=== PATIENT | female | born 1975 | race African-American/Black ===

== ENCOUNTER 2018-12-19 14:59 | Inpatient (IN) ==
[2018-12-19] MEDS ORDERED: CLINDAMYCIN INJ 900 MG in PREMIX 1 EACH IV STA (16:50)
[2018-12-19 17:37] LABS: Basophils # 0.1 10*3/uL (0.0-0.2); Basophils % 0.6 % (0.0-0.8); Eosinophils # 0.2 10*3/uL (0.0-0.87); Hematocrit 40.6 VOL% (35.7-47.0); Hemoglobin 12.4 GM/DL (12.0-16.0); Immature Granulocytes % 0.3 %; Immature Granulocytes Absolute 0.05 #; Lymphocytes # 3.6 10*3/uL (1.4-4.0); Mean Corpuscular HGB Conc 30.5 GM/DL (32-36); Mean Corpuscular Volume 83.9 FL (87-102); Mean Platelet Volume 9.4 FL (9.6-12.0); Monocytes % 6.1 % (1.7-12.7); Platelet Count 314 T/CUMM (130-400); Red Blood Count 4.84 MC/CUMM (3.8-5.5); Red Cell Distribution Width 15.9 % (9.3-17.3); White Blood Count 14.9 T/CUMM (4-12)
[2018-12-19 17:59] LABS: Albumin 3.3 G/DL (3.4-5.0); Bilirubin,Total 0.4 MG/DL (0.2-1.0); Calcium 8.7 MG/DL (8.5-10.1); Osmolality,Calculated 275.5 MOS/KG (273-304); Total Protein 7.7 G/DL (6.4-8.3)
[2018-12-19] MEDS ORDERED: CLINDAMYCIN INJ 50 ML IV ONE (18:50)
[2018-12-19] MEDS ORDERED: DOCUSATE SODIUM 100 MG CAPSULE PO PRN (21:58)
[2018-12-19] MEDS ORDERED: ACETAMINOPHEN 325 MG TABLET PO PRN (21:58)
[2018-12-19] MEDS ORDERED: LACTULOSE 20 GM/30 ML UDCUP PO PRN (21:58)
[2018-12-19] MEDS ORDERED: ONDANSETRON 4 MG/2 ML VIAL IV PRN (21:58)
[2018-12-19] MEDS ORDERED: MORPHINE 4 MG/1 ML VIAL IV PRN (21:58)
[2018-12-19] MEDS ORDERED: ECALLANTIDE SUBCUT PRN (21:58)
[2018-12-19] MEDS ORDERED: traZODone 50 MG TABLET PO PRN (21:58)
[2018-12-19] MEDS ORDERED: RANITIDINE 150 MG TABLET PO SCH (21:58)
[2018-12-19] MEDS ORDERED: Epinephrine [Epipen 2-Pak] 0.3 MG IJ SCH (21:58)
[2018-12-19] MEDS ORDERED: DESONIDE 0.05% CREAM 15 GM TUBE TOP PRN (21:58)
[2018-12-19] MEDS: FAMOTIDINE 20 MG TABLET PO SCH (22:57)
[2018-12-19] MEDS: cloNIDine 0.1 MG TABLET PO SCH (22:57)
[2018-12-19] MEDS: SODIUM CHLORIDE 0.9% 1,000 ML IV SCH (22:57)
[2018-12-19] MEDS: VANCOMYCIN INJ 2,000 MG in SODIUM CHLORIDE 0.9% 500 ML IV SCH (22:57)
[2018-12-19] MEDS: ENOXAPARIN 40 MG/0.4 ML SYRINGE SUBCUT SCH (23:00)
[2018-12-20 04:32] LABS: Basophils # 0.1 10*3/uL (0.0-0.2); Basophils % 0.4 % (0.0-0.8); Eosinophils % 0.2 % (0.00-10.9); Hematocrit 36.2 VOL% (35.7-47.0); Hemoglobin 11.2 GM/DL (12.0-16.0); Immature Granulocytes % 0.3 %; Immature Granulocytes Absolute 0.05 #; Lymphocytes # 2.9 10*3/uL (1.4-4.0); Lymphocytes % 16.7 % (21.3-54.2); Mean Corpuscular HGB Conc 30.9 GM/DL (32-36); Mean Platelet Volume 10.5 FL (9.6-12.0); Neutrophils % 76.4 % (38.7-73.9); Platelet Count 261 T/CUMM (130-400); Red Blood Count 4.31 MC/CUMM (3.8-5.5); Red Cell Distribution Width 15.9 % (9.3-17.3); White Blood Count 17.1 T/CUMM (4-12)
[2018-12-20 05:00] LABS: Albumin 2.9 G/DL (3.4-5.0); Bilirubin,Total 0.6 MG/DL (0.2-1.0); Calcium 8.6 MG/DL (8.5-10.1); Osmolality,Calculated 277.4 MOS/KG (273-304); Risk Ratio 2.69; Total Protein 6.9 G/DL (6.4-8.3); VLDL CHOLESTEROL 18.4 MG/DL
[2018-12-20 05:07] LABS: Lymphocytes 14 % (20-55); Segmented Neutrophils 80 % (50-85); Total Cells Counted 100
[2018-12-20 05:09] LABS: Anisocytosis 1+; Ovalocytes Few; Platelet Estimate Adequate
[2018-12-20] MEDS: VANCOMYCIN INJ 2,000 MG in SODIUM CHLORIDE 0.9% 500 ML IV SCH ×3 (05:34→17:04)
[2018-12-20] MEDS: LEVOTHYROXINE 50 MCG TABLET PO SCH (05:34)
[2018-12-20] MEDS ORDERED: FOLIC ACID PO SCH (09:00)
[2018-12-20] MEDS ORDERED: BIOTIN PO SCH (09:00)
[2018-12-20] MEDS ORDERED: [UNRECOGNIZED DRUG - OTHER] PO SCH (09:00)
[2018-12-20] MEDS: SODIUM CHLORIDE 0.9% 1,000 ML IV SCH ×3 (11:43→17:05)
[2018-12-20] MEDS: cloNIDine 0.1 MG TABLET PO SCH ×2 (16:32→20:56)
[2018-12-20] MEDS: BENZTROPINE 0.5 MG TABLET PO SCH (16:32)
[2018-12-20] MEDS: ATORVASTATIN 10 MG TABLET PO SCH (16:33)
[2018-12-20] MEDS: ARIPiprazole 10 MG TABLET PO SCH (16:33)
[2018-12-20] MEDS: LUBIPROSTONE 24 MCG CAPSULE PO SCH (16:33)
[2018-12-20] MEDS: FAMOTIDINE 20 MG TABLET PO SCH ×2 (16:33→20:55)
[2018-12-20] MEDS: ENOXAPARIN 40 MG/0.4 ML SYRINGE SUBCUT SCH (20:59)
[2018-12-21 05:11] LABS: Basophils # 0.1 10*3/uL (0.0-0.2); Basophils % 0.5 % (0.0-0.8); Eosinophils # 0.2 10*3/uL (0.0-0.87); Eosinophils % 1.1 % (0.00-10.9); Hematocrit 34.3 VOL% (35.7-47.0); Hemoglobin 10.5 GM/DL (12.0-16.0); Immature Granulocytes % 0.2 %; Immature Granulocytes Absolute 0.03 #; Lymphocytes # 3.6 10*3/uL (1.4-4.0); Lymphocytes % 25.6 % (21.3-54.2); Mean Corpuscular HGB Conc 30.6 GM/DL (32-36); Mean Corpuscular Volume 83.5 FL (87-102); Mean Platelet Volume 9.9 FL (9.6-12.0); Neutrophils % 64.6 % (38.7-73.9); Platelet Count 270 T/CUMM (130-400); Red Blood Count 4.11 MC/CUMM (3.8-5.5); Red Cell Distribution Width 15.9 % (9.3-17.3); White Blood Count 14.1 T/CUMM (4-12)
[2018-12-21 05:41] LABS: Calcium 8.5 MG/DL (8.5-10.1); Osmolality,Calculated 274.5 MOS/KG (273-304)
[2018-12-21] MEDS: LEVOTHYROXINE 50 MCG TABLET PO SCH (05:45)
[2018-12-21] MEDS: VANCOMYCIN INJ 2,000 MG in SODIUM CHLORIDE 0.9% 500 ML IV SCH ×3 (05:45→17:08)
[2018-12-21 08:59] LABS: Apearance,Urine CLEAR (Clear); Bacteria,Urine Occasional /HPF (Few); Bilirubin,Urine Negative (Negative); Blood, Urine Small mg/dL (Negative); Glucose,Urine (UA) Negative (Negative); Ketones,Urine Negative (Negative); Mucus,Urine Occasional /LPF (Occasional); Nitrite,Urine Negative (Negative); Protein,Urine Negative; RBC,Urine 2 /HPF (0-4); Squamous Epithelial Cell,Urine Occasional /HPF (0-10); Urine Color Yellow (Yellow); Urine Specific Gravity 1.011 (1.001-1.035); Urine Urobilinogen < 2.0 EU/DL (0.2-1.0); WBC,Urine 1 /HPF (0-6)
[2018-12-21] MEDS: LUBIPROSTONE 24 MCG CAPSULE PO SCH (09:37)
[2018-12-21] MEDS: ARIPiprazole 10 MG TABLET PO SCH (09:37)
[2018-12-21] MEDS: ATORVASTATIN 10 MG TABLET PO SCH (09:37)
[2018-12-21] MEDS: cloNIDine 0.1 MG TABLET PO SCH ×2 (09:37→20:41)
[2018-12-21] MEDS: FAMOTIDINE 20 MG TABLET PO SCH ×2 (09:37→20:44)
[2018-12-21] MEDS: BENZTROPINE 0.5 MG TABLET PO SCH (09:38)
[2018-12-21] MEDS: SODIUM CHLORIDE 0.9% 1,000 ML IV SCH ×2 (09:38→13:23)
[2018-12-21] MEDS: ENOXAPARIN 40 MG/0.4 ML SYRINGE SUBCUT SCH (22:10)
[2018-12-22] MEDS: SODIUM CHLORIDE 0.9% 1,000 ML IV SCH ×4 (00:59→21:01)
[2018-12-22 05:41] LABS: Basophils # 0.1 10*3/uL (0.0-0.2); Basophils % 0.6 % (0.0-0.8); Eosinophils # 0.4 10*3/uL (0.0-0.87); Eosinophils % 3.1 % (0.00-10.9); Hematocrit 35.1 VOL% (35.7-47.0); Hemoglobin 10.5 GM/DL (12.0-16.0); Immature Granulocytes % 0.3 %; Immature Granulocytes Absolute 0.04 #; Lymphocytes # 3.1 10*3/uL (1.4-4.0); Lymphocytes % 26.3 % (21.3-54.2); Mean Corpuscular HGB Conc 29.9 GM/DL (32-36); Mean Corpuscular Volume 85.2 FL (87-102); Mean Platelet Volume 9.5 FL (9.6-12.0); Monocytes % 6.7 % (1.7-12.7); Platelet Count 264 T/CUMM (130-400); Red Blood Count 4.12 MC/CUMM (3.8-5.5); White Blood Count 11.7 T/CUMM (4-12)
[2018-12-22 06:05] LABS: Calcium 7.6 MG/DL (8.5-10.1); Osmolality,Calculated 280.1 MOS/KG (273-304)
[2018-12-22] MEDS: LEVOTHYROXINE 50 MCG TABLET PO SCH (06:32)
[2018-12-22] MEDS: VANCOMYCIN INJ 2,000 MG in SODIUM CHLORIDE 0.9% 500 ML IV SCH ×3 (06:32→17:24)
[2018-12-22] MEDS: ATORVASTATIN 10 MG TABLET PO SCH (08:56)
[2018-12-22] MEDS: FAMOTIDINE 20 MG TABLET PO SCH ×2 (08:56→20:58)
[2018-12-22] MEDS: LUBIPROSTONE 24 MCG CAPSULE PO SCH (08:56)
[2018-12-22] MEDS: ARIPiprazole 10 MG TABLET PO SCH (08:56)
[2018-12-22] MEDS: cloNIDine 0.1 MG TABLET PO SCH ×2 (08:56→20:58)
[2018-12-22] MEDS: BENZTROPINE 0.5 MG TABLET PO SCH (08:56)
[2018-12-22] MEDS ORDERED: C1 ESTERASE INHIBITOR IV SCH (09:00)
[2018-12-22] MEDS: ENOXAPARIN 40 MG/0.4 ML SYRINGE SUBCUT SCH (21:03)
[2018-12-23] MEDS: LEVOTHYROXINE 50 MCG TABLET PO SCH (06:14)
[2018-12-23] MEDS: VANCOMYCIN INJ 2,000 MG in SODIUM CHLORIDE 0.9% 500 ML IV SCH ×2 (06:15→17:32)
[2018-12-23] MEDS: SODIUM CHLORIDE 0.9% 1,000 ML IV SCH (06:16)
[2018-12-23] MEDS: cloNIDine 0.1 MG TABLET PO SCH ×2 (09:40→21:40)
[2018-12-23] MEDS: FAMOTIDINE 20 MG TABLET PO SCH ×2 (10:42→21:40)
[2018-12-23] MEDS: BENZTROPINE 0.5 MG TABLET PO SCH (10:42)
[2018-12-23] MEDS: ATORVASTATIN 10 MG TABLET PO SCH (10:42)
[2018-12-23] MEDS: ARIPiprazole 10 MG TABLET PO SCH (10:42)
[2018-12-23] MEDS: LUBIPROSTONE 24 MCG CAPSULE PO SCH (10:42)
[2018-12-23] MEDS ORDERED: LIDOCAINE 1%/EPI INJ 20 ML VIAL ONE (12:05)
[2018-12-23] MEDS ORDERED: BUPIVACAINE 0.25% /EPI 10 ML VIAL ONE (12:05)
[2018-12-23] MEDS ORDERED: PROPOFOL 200 MG/20 ML VIAL IV ONE (13:47)
[2018-12-23] MEDS ORDERED: MIDAZOLAM 2 MG/2 ML VIAL ONE (13:47)
[2018-12-23] MEDS ORDERED: SEVOFLURANE 1 UNIT/15 MINUTE INH ONE (13:48)
[2018-12-23] MEDS ORDERED: fentaNYL 100 MCG/2 ML VIAL ONE (13:48)
[2018-12-23] MEDS ORDERED: PHENYLEPHRINE 1 MG/10 ML SYRINGE IV ONE (13:49)
[2018-12-23] MEDS ORDERED: ePHEDrine 50 MG/ML AMP ONE (13:49)
[2018-12-23] MEDS ORDERED: ONDANSETRON 4 MG/2 ML VIAL ONE (13:49)
[2018-12-23] MEDS: ENOXAPARIN 40 MG/0.4 ML SYRINGE SUBCUT SCH (21:41)
[2018-12-24] MEDS: SODIUM CHLORIDE 0.9% 1,000 ML IV SCH ×3 (03:01→13:35)
[2018-12-24 04:47] LABS: Basophils # 0.1 10*3/uL (0.0-0.2); Basophils % 0.6 % (0.0-0.8); Eosinophils # 0.4 10*3/uL (0.0-0.87); Eosinophils % 3.9 % (0.00-10.9); Hemoglobin 10.3 GM/DL (12.0-16.0); Immature Granulocytes % 0.4 %; Immature Granulocytes Absolute 0.04 #; Lymphocytes # 2.6 10*3/uL (1.4-4.0); Mean Corpuscular HGB Conc 30.3 GM/DL (32-36); Mean Corpuscular Volume 84.4 FL (87-102); Mean Platelet Volume 9.7 FL (9.6-12.0); Monocytes % 6.8 % (1.7-12.7); Neutrophils % 64.3 % (38.7-73.9); Platelet Count 288 T/CUMM (130-400); Red Blood Count 4.03 MC/CUMM (3.8-5.5); Red Cell Distribution Width 15.9 % (9.3-17.3); White Blood Count 10.6 T/CUMM (4-12)
[2018-12-24 05:09] LABS: Calcium 8.4 MG/DL (8.5-10.1); Osmolality,Calculated 282.1 MOS/KG (273-304)
[2018-12-24] MEDS: VANCOMYCIN INJ 2,000 MG in SODIUM CHLORIDE 0.9% 500 ML IV SCH ×2 (06:12→17:31)
[2018-12-24] MEDS: LEVOTHYROXINE 50 MCG TABLET PO SCH (06:12)
[2018-12-24] MEDS: LUBIPROSTONE 24 MCG CAPSULE PO SCH (08:00)
[2018-12-24] MEDS: ARIPiprazole 10 MG TABLET PO SCH (08:00)
[2018-12-24] MEDS: ATORVASTATIN 10 MG TABLET PO SCH (08:00)
[2018-12-24] MEDS: FAMOTIDINE 20 MG TABLET PO SCH ×2 (08:00→20:28)
[2018-12-24] MEDS: BENZTROPINE 0.5 MG TABLET PO SCH (08:00)
[2018-12-24] MEDS: cloNIDine 0.1 MG TABLET PO SCH ×2 (08:00→20:28)
[2018-12-24] MEDS: ENOXAPARIN 40 MG/0.4 ML SYRINGE SUBCUT SCH (22:32)
[2018-12-25] MEDS: SODIUM CHLORIDE 0.9% 1,000 ML IV SCH ×2 (02:13→08:59)
[2018-12-25 05:11] LABS: Basophils % 0.4 % (0.0-0.8); Eosinophils # 0.4 10*3/uL (0.0-0.87); Eosinophils % 3.7 % (0.00-10.9); Hematocrit 34.6 VOL% (35.7-47.0); Hemoglobin 10.5 GM/DL (12.0-16.0); Immature Granulocytes % 0.5 %; Immature Granulocytes Absolute 0.05 #; Lymphocytes # 2.6 10*3/uL (1.4-4.0); Lymphocytes % 26.4 % (21.3-54.2); Mean Corpuscular HGB Conc 30.3 GM/DL (32-36); Mean Corpuscular Volume 84.8 FL (87-102); Mean Platelet Volume 9.6 FL (9.6-12.0); Monocytes % 6.4 % (1.7-12.7); Neutrophils % 62.6 % (38.7-73.9); Platelet Count 284 T/CUMM (130-400); Red Blood Count 4.08 MC/CUMM (3.8-5.5); Red Cell Distribution Width 15.9 % (9.3-17.3); White Blood Count 9.9 T/CUMM (4-12)
[2018-12-25 05:27] LABS: Calcium 8.5 MG/DL (8.5-10.1)
[2018-12-25] MEDS: VANCOMYCIN INJ 2,000 MG in SODIUM CHLORIDE 0.9% 500 ML IV SCH (05:54)
[2018-12-25] MEDS: LEVOTHYROXINE 50 MCG TABLET PO SCH (05:54)
[2018-12-25] MEDS: ARIPiprazole 10 MG TABLET PO SCH (08:58)
[2018-12-25] MEDS: ATORVASTATIN 10 MG TABLET PO SCH (08:58)
[2018-12-25] MEDS: LUBIPROSTONE 24 MCG CAPSULE PO SCH (08:59)
[2018-12-25] MEDS: cloNIDine 0.1 MG TABLET PO SCH (08:59)
[2018-12-25] MEDS: BENZTROPINE 0.5 MG TABLET PO SCH (08:59)
[2018-12-25] MEDS: FAMOTIDINE 20 MG TABLET PO SCH (08:59)
[2018-12-25] MEDS ORDERED: CHLORHEXIDINE 4% SOLN 118 ML BOTTLE TOP SCH (09:00)
[2018-12-25 16:07] VITALS: BP 117/59
[2018-12-25] MEDS ORDERED: DOXYCYCLINE HYCLATE 100 MG CAPSULE PO SCH (21:00)
== END 2018-12-25 17:49 | disposition home health service (06) | DRG 253 ==
LOC: N.ED 14:59 → N.EDINP 19:38 → SUATTDRO 19:38 → N.5E 20:55
PROVIDERS: ADMIT Internal Medicine; ATTEND Hospitalist